=== PATIENT | male | born 1970 | race Caucasian/White ===

== ENCOUNTER 2020-05-19 08:04 | Emergency (ER) | payer OTHER ==
--- NOTE | 2020-05-19 08:14 | ED Physician Documentation ---
PD HPI HEENT - Stated complaint Stated Complaint: RT FACE SWELLING - History obtained from History obtained from: Patient - History of Present Illness Timing - onset: How many days ago (5) Timing - duration: Days (5) Timing - details: Gradual onset, Still present Location: Tooth (had onset of pain right lower molar after crown fell off that increased over couple days, [place] Had root canal of the tooth and was feeling some better. Filling placed. He then started with increased pain and some swelling. Seen yesterday at dental again, referred to [facility].) Associated symptoms: Facial swelling (right mandible area. No feeling of fullness in throat nor trouble swallowing.). No: Fever, Congestion Similar symptoms before: Has not had sx before Recently seen: Clinic (seen dental [facility] and had filling/root canal. Then increased swelling and pain, and referred to [facility] in [place]. Seen there and was offered surgical drainage of the developing abscess. Pt declined as was "not prepared for that". Given Augmentin Rx that he got filled but did not start yet.) Review of Systems Constitutional: denies: Fever, Chills, Myalgias Nose: denies: Rhinorrhea / runny nose, Congestion Throat: reports: Dental pain / toothache. denies: Sore throat Respiratory: denies: Dyspnea, Cough GI: denies: Nausea, Vomiting Skin: denies: Rash PD PAST MEDICAL HISTORY - Past Medical History Past Medical History: No - Present Medications Home Medications: Ambulatory Orders Medication Instructions Recorded Confirmed Acetaminophen [Tylenol] 325 mg PO Q5MIN PRN 05/19/20 05/19/20 Ibuprofen [Motrin] 600 mg PO Q6HR 05/19/20 05/19/20 Oxycodone HCl/Acetaminophen 1 each PO Q6H PRN #20 tablet 05/19/20 [Percocet 5-325 mg Tablet] - Allergies Allergies/Adverse Reactions: Allergies Allergy/AdvReac Type Severity Reaction Status Date / Time No Known Drug Allergies Allergy Verified 05/19/20 08:34 PD ED PE NORMAL - Vitals Vital signs reviewed: Yes - General General: Alert and oriented X 3, No acute distress (does seem anxious and some appearance of pain. ), Well developed/nourished - HEENT HEENT: Pharynx benign. No: Dentition benign (right lower molar with tenderness. Swelling but no fluctuance of the gum. The face has local swelling right mandible. Mild redness of skin in the area. No fullness in anterior neck. ) - Neck Neck: Supple, no meningeal sign, No adenopathy - Cardiac Cardiac: RRR, No murmur - Respiratory Respiratory: Clear bilaterally Results - Vitals Vitals: Vital Signs - 24 hr 05/19/20 08:28 Temperature 36.9 C Heart Rate 100 Respiratory 20 Rate Blood Pressure 144/90 H O2 Saturation 100 Oxygen O2 Source Room air PD MEDICAL DECISION MAKING - ED course Complexity details: considered differential (dental abscess/infection. Has not started abx Rx yesterday. Was not given Rx for pain meds. He is encouraged to start the Augmentin and willl give Rx for pain. To follow up with [facility] on Thursday. No signs of spread to anterior neck/down tissue plane. ), d/w patient Departure - Departure Disposition: Home, Self Care Clinical Impression: Dental abscess, Pain, dental Condition: Stable Record reviewed to determine appropriate education?: Yes Instructions: ED Abscess Dental Follow-Up: [facility] [Provider Group] Cristian Wallace DMD [Physician No Access] - Jovon Starr DDS [Provider Admit Priv/Credential] - Prescriptions: Oxycodone HCl/Acetaminophen [Percocet 5-325 mg Tablet] 1 each PO Q6H PRN #20 tablet PRN Reason: pain Comments: Start the Augmentin antibiotic prescribed for you. Continue some ibuprofen 2-3 times a day. Add the oxycodone pain medicine as needed for pain. [place] oral surgery on Thursday. Return to the ER sooner if worsening. I would anticipate improvement in the pain and swelling with the antibiotics, though you will still likely need more definitive care of the tooth itself. Discharge Date/Time: 05/19/20 09:51
[2020-05-19 08:34] VITALS: BP 144/90
[2020-05-19] MEDS ORDERED: cefTRIAXone 1 GM VIAL IM STA (09:16)
[2020-05-19] MEDS ORDERED: LIDOCAINE 1% 2 ML VIAL MC ONE (09:16)
[2020-05-19] MEDS ORDERED: KETOROLAC 30 MG/ML VIAL IM STA (09:16)
== END 2020-05-19 09:51 | disposition home or self-care (01) ==
LOC: ED 08:04
DX: K04.7 Periapical abscess without sinus (principal); K08.89 Other specified disorders of teeth and supporting structures
CPT/HCPCS: 96372; 99283; 99284

== ENCOUNTER 2023-05-25 14:17 | Outpatient (CLI) | payer OTHER ==
--- NOTE | 2023-05-25 20:07 | SLEEP CARE CONSULTATION ---
Information from patient questionnaire entered by Alexander Nunez. I have reviewed and concur with the information entered by Alexander Nunez. This document represents the service I personally performed and the decisions made by me, Fito Jennings MD, [facility]. History of Present Illness Service Date and Time: 05/25/2023 1417 Reason for Visit: New patient Chief Complaint: reports: Snoring, Observed pauses in breathing, Frequent awakenings at night Date of Onset: 4-5YRS Usual bedtime: 9PM Time it takes to fall asleep: NOT LONG Snores at night: Yes Observed to quit breathing while asleep: Yes Sleeps alone due to snoring: Yes Number of times waking at night: 2-5 Reasons for waking at night: reports: Snoring, Bathroom, Other (UNKNOWN) Toss, Turn, or Twitch while sleeping: Yes Recalls having dreams: Yes Usually gets out of bed at: VARIOUS TIMES Feels refreshed in the morning: Yes Morning headache: Yes Sleepy or fatigued during the day: Yes Ever fallen asleep while driving: No Takes day naps: No Prior sleep studies: No Additional HPI information: I had the pleasure of seeing Mr. Mcpherson today regarding the possibility of him having a sleep disorder. As you know, he is a 49-year-old gentleman who complains of loud snore, observed apneas, frequent awakenings, unrefreshed sleep, and morning headache. The patient tells me that he normally goes to bed around 9 am, and it takes him approximately just a few minutes to fall asleep. He has been told that he snores loudly and irregularly at night. He has also been observed to stop breathing in his sleep. He sleeps alone most of the time. He can recall waking up on the average of 2 5 times during the night. Most of the time he wakes up because of having to use the bathroom. He has awakened occasionally because of his own snoring, but not choking, or having to gasp for air. There is not a lot of tossing and turning in his sleep. No somniloquy (sleep talking) or somnambulism (sleep walking). Generally, he can recall having dreams. In the morning he usually gets up out of the bed around 5 am not feeling refreshed nor rested. He usually has a morning headache that goes away after one hour. During the day he does not feel sleepy or fatigued. His score on [place] Sleepiness Scale is 3 out of 24. He never has fallen asleep while driving nor has had any accident due to sleepiness. He usually does not a nap during the day. He denies having impaired concentration during the day. - Parasomnia Symptoms Ever been unable to move upon waking from sleep: No Walks in sleep: Yes Ever acted out dreams in sleep: Yes Ever felt weak in the knees when startled or emotional: No Bothered by creepy, crawly, restless sensations in legs: No Problems with memory or concentration: Yes Subjective Initial [place] Sleepiness Scale score: 3 (05/07/23) Past Medical History Past Medical History: reports: Hypertension, Impotence Social History The patient's occupation is a ACTIVE [employer]. Patient is Single and lives in [place]. Have you smoked in the past 12 months: Yes Cigarettes per day (20/pack): 10 Years of smokin Smoking Pack Years: 16.5 Alcohol use: Yes Alcohol amount and frequency: 2-3 BEERS ON WEEKENDS Caffeine use: Yes Caffeine amount and frequency: 2-3CUP MOST DAYS Family History Family history of sleep disordered breathing: Yes Family Hx Sleep Apnea: Mother: Snoring, Father: Snoring Allergies and Home Medications Known drug allergies: No Drug allergies reviewed: Yes Home medication list reviewed: Yes Allergy and home medication list: Allergies No Known Drug Allergies Allergy (Verified 05/20/23 16:09) Home Medications Melatonin See Rx Instructions .ROUTE .COMPLEX 05/20/23 [History Confirmed 05/20/23] Review of Systems Cardiovascular: denies: high blood pressure, palpitations, chest pain, irregular heart rate or pulse, leg or foot swelling, have to sleep sitting up, other Respiratory: denies: shortness of breath, wheeze, sputum production, chronic cough, other Gastrointestinal: reports: diarrhea Urinary: reports: frequency, urgency, impotence Neurological: reports: headaches Psychiatric: denies: Attention Deficit Hyperactivity, anxiety, depression, mood disorder, claustrophobia, other Ear/Nose/Throat: reports: sinus problems, dry mouth/throat, wisdom teeth removed Endocrine: reports: increased urination Musculoskeletal: reports: neck pain Immunologic: reports: sneezing Physical Exam Vital signs obtained and entered by: ALEXANDER Rooney MA Blood Pressure: 123/78 (LEFT ARM) Cuff size: regular Heart Rate: 98 O2 Saturation: 76 Height: 5 ft 8 in Weight: 187 lb 3.2 oz Body Mass Index: 28.4 BMI Classification: Overweight Neck circumference: 17 Mood/affect: Normal HEENT: No craniofacial malformation Nostrils: patent to airflow Turbinates: normal Septum: midline Mouth and throat: narrow oropharynx Soft palate: long Hard palate: normal Uvula: normal Uvula visualization: 25% Mallampati Class III Tongue: normal in size Tonsils: absent bilaterally Chin and jaw: normal size and position Neck: normal w/o lymphadenopathy or thyromegaly Heart: regular rate and rhythm Lungs: clear bilaterally Extremities: no edema or clubbing Neurologic: intact Impression and Plan IMPRESSION: 1. Obstructive Sleep Apnea-Hypopnea Syndrome, as suggested by history of loud and irregular snoring, observed apneas, frequent awakenings, unrefreshed sleep, and morning headache. Narrow oropharynx and obesity are common predisposing factors for obstructive sleep apnea-hypopnea syndrome. I recommend proceeding to polysomnography to confirm the diagnosis and to assess severity. I informed the patient of what the sleep studies involve and after some discussion, he agreed to proceed. Plan: 1. Schedule polysomnography and return in 1 to 2 weeks after the study to discuss result and initiate therapy. 2. Avoid long distance driving or when feeling sleepy. 3. Avoid alcohol, sedative and muscle relaxant around bedtime. 4. Attempt to lose some weight. Follow up with Sleep Care in: 1-2 months Visit Type: In Office Time Spent with Patient (minutes): 15 Provider Statement: I spent 100% of the Face to Face Visit with the patient with greater than 50% spent counseling the patient and coordination of care.
[2023-05-25 20:16] VITALS: BP 123/78; O2SAT 76
== END 2023-05-25 14:18 | disposition home or self-care (01) ==
LOC: SC 14:17
PROVIDERS: ATTEND Internal Medicine Pulmonary Disease
DX: R06.83 Snoring (principal); R06.81 Apnea, not elsewhere classified; G47.8 Other sleep disorders; R51.9 Headache, unspecified; F17.210 Nicotine dependence, cigarettes, uncomplicated; E66.3 Overweight; Z68.28 Body mass index [BMI] 28.0-28.9, adult
CPT/HCPCS: 99202; 99212

== ENCOUNTER 2023-08-28 20:30 | Outpatient (CLI) | payer OTHER | END 2023-08-28 20:31 | disposition home or self-care (01) | LOC: SC 20:30 | PROVIDERS: ATTEND Internal Medicine Pulmonary Disease | DX: G47.31 Primary central sleep apnea (principal); G47.61 Periodic limb movement disorder | CPT/HCPCS: 95810 ==

== ENCOUNTER 2023-09-04 13:52 | Outpatient (CLI) | payer OTHER ==
--- NOTE | 2023-09-04 14:21 | Sleep Patient Instructions ---
Sleep Center Visit Summary - Patient Visit Information Reason for Visit: Follow-up sleep study - Patient Instructions Instructions Attached: BiPap About, CPAP Additional Instructions: You will be completing a titration sleep study in our sleep lab where you will be sleeping with the CPAP machine on and we will be adjusting your pressures to find your optimal pressure settings. Once we have your results back, we will call you and schedule a follow up to go over the results, you may contact us with any questions or issues as needed. - Clinic Information Contact: [facility] [address] [place] [id number] [email or web address] T: [phone]
--- NOTE | 2023-09-04 14:26 | SLEEP CARE CONSULTATION ---
Information from patient questionnaire entered by Kayce Nunez. I have reviewed and concur with the information entered by Kayce Nunez. This document represents the service I personally performed and the decisions made by , Lanny Lauren ARNP. History of Present Illness Service Date and Time: 09/04/2023 1352 Initial [place] Sleepiness Scale score: 3 (05/07/23) Current [place] Sleepiness Scale score: 3 (09/04/23) Additional HPI information: JONNY BALDERRAMA returns for follow up and results of the recently performed polysomnography. The sleep study showed severe central sleep apnea with an average AHI of 46.2 and miquel oxygen saturation of 82%. He also had mild PLMs contributing to sleep fragmentation. I explained the pathophysiology behind obstructive sleep apnea. We then spent quite a bit of time discussing different treatment options. For mild obstructive sleep apnea, surgery and oral appliance are alternatives to nasal CPAP therapy but in moderate or severe cases, nasal CPAP is the most effective and reliable treatment. I reviewed the impact of weight changes on sleep apnea and strongly recommended losing weight. After some discussion, the patient opted to go with the nasal CPAP therapy. A manual titration study will be ordered to find optimal pressure with office adjustments. Patient was cautioned about risks of drowsy driving until sleepiness symptoms resolve. Patient denies drowsy driving. Sleep Study - Results Type of Sleep Study: Polysomnography (COMPLETED 08/28/23) Prior sleep studies: No Polysomnography/Home Sleep Study results: IMPRESSION: The quality of the study is good. The patient had minimally reduced sleep efficiency. The sleep architecture was abnormal for sleep fragmentation and reduced amount of time spent in slow wave sleep (N3). Respiratory monitoring showed severe central sleep apnea-hypopnea (AHI = 46.2) associated with frequent arousals, oxyhemoglobin desaturation and mild hypoxia (miquel oxygen saturation of 82%). The respiratory events occurred predominantly during supine sleep (supine AHI = 94.1; non-supine = 33.40). Snore was light to loud in intensity. There was mild periodic leg movement of sleep, contributing to the sleep fragmentation. Cardiac rhythm was normal sinus rhythm without significant arrhythmia. No abnormal behavior (p arasomnia) observed during the night. Allergies and Home Medications Known drug allergies: No Drug allergies reviewed: Yes Home medication list reviewed: Yes (no changes) Allergy and home medication list: Allergies No Known Drug Allergies Allergy (Verified 09/04/23 11:50) Review of Systems Review of systems same as previous: Yes (NO CHANGE) Physical Exam Vital signs obtained and entered by: KAYCE Rooney MA Blood Pressure: 125/81 (LEFT ARM) Cuff size: regular Heart Rate: 92 O2 Saturation: 97 Height: 5 ft 8 in Weight: 196 lb 9.6 oz Body Mass Index: 29.9 BMI Classification: Overweight Impression and Plan 1. Central Sleep Apnea-Hypopnea Syndrome, severe, with lowest oxygen saturation of 82%. Obviously this is the cause of the patients symptoms of unrefreshed sleep, and excessive daytime sleepiness. Positive pressure therapy could benefit hypertension. As mentioned above, the patient will be started on nasal autoCPAP therapy. A manual titration study will be completed to find optimal treatment pressure with office adjustments. Compliance guidelines also reviewed. Because the apnea is more severe supine, I instructed to avoid sleeping supine using pillow positioning until able to start CPAP use. 2. Hypoxemia, mild, with a miquel oxygen saturation of 82% and 16.6 minutes spent under 90%. The baseline oxygen saturation was normal with an average oxygen saturation of 92%. 3. Periodic limb movement, mild, that did not fragment patients sleep. Periodic limb movement of sleep (PLMS) is characterized by episodes of repetitive limb movements that occur during sleep and usually involve the lower limbs. The etiology is unknown. Sleep hygiene methods can also improve sleep as well as lifestyle changes such as regular exercise. Patient was advised that no treatment is needed at this time. If symptoms increase, then further evaluation is indicated. 4. Overweight, unspecified. Currently patients BMI is 29.9. Obesity increases the risk of apnea, CPAP pressure requirements and overall health risks especially cardiovascular and diabetes. Thus patient is advised to lose weight. * Titration study * Attempt to lose weight. * Avoid alcohol consumption near bedtime. * Avoid supine sleep until using CPAP. * The patient is again cautioned about driving until sleepiness completely resolves. * Return after Titration study to get set up on PAP therapy. Counseling Topics: Sleeping position, Weight loss health impact Follow up with Sleep Care in: other (after titration study for results and set up on therapy) Visit Type: In Office Time Spent with Patient (minutes): 28 Provider Statement: I spent 100% of the Face to Face Visit with the patient with greater than 50% spent counseling the patient and coordination of care.
[2023-09-04 14:28] VITALS: BP 125/81; O2SAT 97
== END 2023-09-04 13:53 | disposition home or self-care (01) ==
LOC: SC 13:52
PROVIDERS: ATTEND Nurse Practitioner Family
DX: G47.31 Primary central sleep apnea (principal); R09.02 Hypoxemia; G47.61 Periodic limb movement disorder
CPT/HCPCS: 99212; 99213

== ENCOUNTER 2023-09-24 19:41 | Outpatient (CLI) | payer OTHER | END 2023-09-24 19:42 | disposition home or self-care (01) | LOC: SC 19:41 | PROVIDERS: ATTEND Nurse Practitioner Family | DX: G47.31 Primary central sleep apnea (principal) | CPT/HCPCS: 95811 ==

== ENCOUNTER 2023-10-02 13:27 | Outpatient (CLI) | payer OTHER ==
--- NOTE | 2023-10-02 14:07 | Sleep Patient Instructions ---
Sleep Center Visit Summary - Patient Visit Information Reason for Visit: Titration study follow-up - Patient Instructions Instructions Attached: BiPap About Additional Instructions: You are being started on BiPAP therapy with pressure setting at 8/4 cmH2O. You will need to call the sleep care office to set up your follow up once you have your BiPAP machine to check compliance and response to therapy at that time. You may call the office with any concerns about pressure feeling too low or too much for adjustment, if needed. You should contact DME supplier for any questions or concerns about mask or equipment. Please call office to schedule a follow up appointment in the sleep care office one month after obtaining new device. - Clinic Information Contact: [facility] [address] [place] [address] [email or web address] T: [phone]
--- NOTE | 2023-10-02 14:14 | SLEEP CARE CONSULTATION ---
Information from patient questionnaire entered by Kayce Nunez. I have reviewed and concur with the information entered by Kayce Nunez. This document represents the service I personally performed and the decisions made by me, Lanny Lauren ARNP. History of Present Illness Service Date and Time: 10/02/2023 1327 Initial [place] Sleepiness Scale score: 3 (05/07/23) Current [place] Sleepiness Scale score: 3 (10/02/23) Additional HPI information: JONNY Muñiz TACOS returns for follow up of a manual CPAP titration study performed on 09/24/2023. Previous study done on 08/28/23 showed severe central sleep apnea with AHI 46.2. The patient was informed of the following polysomnography findings: This was an incomplete manual CPAP titration study. The patient could not tolerate the positive airway pressure therapy and ended the study prematurely. The quality of the study was good. CPAP was initiated at 6 cmH2O and titrated up to CPAP at 8 cmH2O. None of the tested pressures was effective. Dr. Jennings recommended a trial of BiPAP at home set at a low pressure like 8/4 cmH2O. Once the patient is accustomed to the treatment, then another titration study could be done to find optimal pressure if needed. I explained how CPAP machine works and what to expect when using the machine. Using CPAP every night in order to get used to it was emphasized. Patient advised to put CPAP mask on before getting into bed so as not to fall asleep without CPAP. To assist acclimation to CPAP use, it could also be used for a short time during day while reading or watching TV. The patient was instructed to call the CPAP supplier to discuss any mechanical problem that may occur. If the mask given is uncomfortable or is difficult to keep on through the night even with adjustment, contact the CPAP supplier as many will replace with ano ther mask style if notified before 30 days. If snoring or perceives is not getting enough air or too much air from the machine, notify this office. Patient counseled not drink alcohol less than 4 hours before bedtime as it can increase snoring and apnea. Patient was cautioned about risks of drowsy driving until sleepiness symptoms resolve. Patient denies drowsy driving. Sleep Study - Results Type of Sleep Study: Polysomnography (COMPLETED 08/28/23 TITRATION 08/28/23) Prior sleep studies: No Polysomnography/Home Sleep Study results: IMPRESSION: This an incomplete manual CPAP titration study. The patient could not tolerate the positive airway pressure therapy and ended the study prematurely. The quality of the study is good. CPAP was initiated at 6 cmH2O and titrated up to CPAP at 8 cmH2O. None of the tested pressures was effective. The patient slept for an hour and there was no REM or slow wave sleep (N3). There was no periodic leg movement of sleep. Cardiac rhythm was normal sinus rhythm without significant arrhythmia. No abnormal behavior (parasomnia) observed during the night. CONCLUSIONS and RECOMMENDATIONS: 1. Central sleep apnea (ICD-10 G47.31), severe (AHI was 46.2), adequately controlled with CPAP between 6 and 8 cmH2O. Recommend a trial of BiPAP at home set at low pressure, e.g. 8/4 cmH2O. Once the patient is accustomed to the treatment, then this study could be repeated. A full face mask is recommended because he has difficulty breathing through his nose. Mask used was a ResMed F30 full face mask medium. 2. Of note, this patient may actually have obstructive sleep apnea-hypopnea as the primary type of sleep-related breathing disorder because on his diagnostic polysomnography, his respiratory events occurred predominantly during supine sleep and did not spare REM sleep. Allergies and Home Medications Known drug allergies: No Drug allergies reviewed: Yes Home medication list reviewed: Yes (no changes) Allergy and home medication list: Allergies No Known Drug Allergies Allergy (Verified 09/04/23 13:55) Review of Systems Review of systems same as previous: Yes (NO CHANGE) Physical Exam Vital signs obtained and entered by: KAYCE Rooney MA Blood Pressure: 124/78 (LEFT ARM) Cuff size: regular Heart Rate: 82 O2 Saturation: 98 Height: 5 ft 8 in Weight: 195 lb 9.6 oz (with clothes /boots) Body Mass Index: 29.7 BMI Classification: Overweight Impression and Plan 1. Central Sleep Apnea-Hypopnea Syndrome, severe. Patient returns to the office after titration study to find optimal pressures. After only an hour of sleep patient ended the study and went home. He did not appear to be able to tolerate the pressures. He was just concerned that he would not get any sleep and had an event to get to the next day. Using positive pressure therapy could benefit his hypertension. I advised a trial on BiPAP at low pressures to try at home in a more comfortable environment to be able to get him used to using a PAP device and then followup for adjustments and assistance. The patient will be started on BiPAP therapy with pressure set at 8/4 cmH2O. Compliance guidelines also reviewed. A copy of compliance guidelines will be given for reference at check out. 2. Overweight, unspecified. Currently patients BMI is 29.7. Obesity increases the risk of apnea, BIPAP pressure requirements and overall health risks especially cardiovascular and diabetes. Thus patient is advised to lose weight. * Nasal BiPAP therapy, pressure at 8/4 cm H2O. * Maintain a healthy weight. * Avoid alcohol consumption near bedtime. * The patient is again cautioned about driving until sleepiness completely resolves. * Return one month after BiPAP obtained. I will assess response to therapy and compliance at that time. Counseling Topics: Weight loss health impact Prescriptions: BiPAP Plan: BiPAP setup and follow up Visit Type: In Office Time Spent with Patient (minutes): 29 Provider Statement: I spent 100% of the Face to Face Visit with the patient with greater than 50% spent counseling the patient and coordination of care.
[2023-10-02 14:23] VITALS: BP 124/78; O2SAT 98
== END 2023-10-02 13:28 | disposition home or self-care (01) ==
LOC: SC 13:27
PROVIDERS: ATTEND Nurse Practitioner Family
DX: G47.31 Primary central sleep apnea (principal); E66.3 Overweight; Z68.29 Body mass index [BMI] 29.0-29.9, adult
CPT/HCPCS: 99212; 99213